=== PATIENT | male | born 1995 | race Two or more races ===

== ENCOUNTER 2025-04-07 20:51 | Emergency (ER) | payer MEDICAID, SELFPAY ==
[2025-04-07 20:53] VITALS: BMI 51.3
[2025-04-07 21:00] VITALS: BP 158/77; PULSE 76; RESP 19; TEMP 36.9; O2SAT 96
--- NOTE | 2025-04-07 21:07 | PD.EDDENTL ---
ED Dental RME/HPI General Chief complaint: Dental/Oral/Throat Stated complaint: tooth pain Time Seen by Provider: 04/07/25 20:57 Arrival date/time: 04/07/25 20:51 29-year-old male presents to the ED with complaint of right lower wisdom tooth pain, #32 as well as #30 dental pain. He attempted to call his dentist yesterday but they were closed. He was unable to get any rest today, as he works [employer]. Limitations: no limitations RME / HPI Teeth map:  1. Obvious caries noted with no gumline abscess 2. No obvious caries noted, with no gumline abscess, positive percussive tenderness. Related Data Previous Rx's ?Medication ?Instructions ?Recorded ibuprofen 800 mg tablet 800 mg PO Q8H PRN pain #30 tabs 06/25/22 benzonatate 200 mg capsule 200 mg PO TID PRN cough #20 caps 11/10/23 ibuprofen 600 mg tablet 600 mg PO TID PRN pain #30 tabs 11/10/23 ibuprofen 800 mg tablet 800 mg PO TID PRN pain #30 tabs 12/08/23 cephalexin 500 mg capsule 500 mg PO BID #10 caps 01/24/24 amoxicillin 875 mg tablet 875 mg PO BID Dental abscess #20 04/07/25 tabs ibuprofen 800 mg tablet 800 mg PO Q8H PRN pain #30 tabs 04/07/25 Allergies Allergy/AdvReac Type Severity Reaction Status Date / Time No Known Allergies Allergy Verified 01/24/24 04:17 Review of Systems Review of Systems Systems Reviewed: All systems reviewed, normal except as documented Past Medical History Past Medical History CARDIAC: Negative Congestive Heart Failure RESPIRATORY: Negative Chronic Obstructive Pulmonary Disease (COPD) GENITOURINARY: Negative Renal Disease ENDOCRINE: Negative Diabetes Mellitus Type 1 or Diabetes Mellitus Type 2 Social History SMOKING STATUS: Never smoker SUBSTANCE USE: marijuana (states he quit long time ago. ) ED Exam Narrative Physical exam: 29-year-old male, mild acute pain distress secondary to dental pain. He is afebrile, nontoxic-appearing. Lungs are clear, regular rate and rhythm without murmurs. No adenopathy. Caries noted to tooth #32 and percussive tenderness noted to tooth #30 on the right lower mandible. General Limitations: Present no limitations Course Course Course Narrative: Patient was given ibuprofen 800 mg p.o. as well as Augmentin 875 mg p.o. Quality Measures none Orders Category Date Time Status Amoxicillin/Pot Clav 875 [Augmentin 875] Med 04/07/25 21:12 Discontinued 1 tab PO X1 ONE Ibuprofen Tab [Motrin Tab] Med 04/07/25 21:12 Discontinued 800 mg PO X1 ONE Vital Signs Vital signs: Vital Signs Temperature 98.5 F 04/07/25 21:00 Pulse Rate 76 04/07/25 21:00 Respiratory Rate 19 04/07/25 21:00 Blood Pressure 158/77 H 04/07/25 21:00 Pulse Oximetry (%) 96 04/07/25 21:00 Oxygen Delivery Method Room Air 04/07/25 21:00 Dental / Oral MDM Narrative MDM Narrative:: 29-year-old male presents to the ED with complaint of right lower wisdom tooth pain, #32 as well as #30 dental pain. He attempted to call his dentist yesterday but they were closed. He was unable to get any rest today, as he works [employer]. 29-year-old male, mild acute pain distress secondary to dental pain. He is afebrile, nontoxic-appearing. Lungs are clear, regular rate and rhythm without murmurs. No adenopathy. Caries noted to tooth #32 and percussive tenderness noted to tooth #30 on the right lower mandible. Patient was given ibuprofen 800 mg p.o. as well as Augmentin 875 mg p.o. Patient data External records reviewed:: None Clinical information provided by:: patient Social determinants that could affect healthcare access:: none Patient has the following chronic illnesses:: N/A How is presenting disease/condition affected by chronic disease/condition?: no chronic disease Evaluation data The following diagnostics were reviewed and interpreted by me:: other (specify) (N/A) Lab and/or radiology exams considered but not ordered:: N/A Interpretation Summary: N/A Medications / Prescriptions Medications or Prescriptions considered but not ordered:: N/A Medication administrations:: Medication Administration History Discontinued Medications Amoxicillin/Clavulanate Potassium (Amoxicillin/Pot Clav 875 Tablet) 1 tab PO X1 ONE Stop: 04/07/25 21:13 Last Admin: 04/07/25 21:28 Dose: 1 tab Documented By: HUY Ibuprofen (Ibuprofen Tab 400 Mg Tablet) 800 mg PO X1 ONE Stop: 04/07/25 21:13 Last Admin: 04/07/25 21:28 Dose: 800 mg Documented By: KF As noted above Consultations Consultation(s) initiated? (list below): No Diagnosis Dental Differential Diagnosis: dental caries, toothache, dental abscess and fracture of tooth Most likely diagnosis given after review of the tests above:: Dental abscess Admission Indicated Admission indicated?: not indicated Explain why admission is indicated or not indicated:: Patient stable for discharge Admission Request Was there a request for admission?: No Disposition Plan Disposition Plan: Discharge Discharge Attestation Discharge Attestation: The patient and all family members were given an opportunity to ask questions and understood the discharge instructions. Discharge instructions specifically effects, indications for sooner follow up or return to the emergency department, and the expected course of current diagnosis. Patient condition: Stable Discharge Plan Plan Patient Disposition: HOME (Self Care) Discharge Disposition comment: Stable Prescriptions/Referrals Prescriptions/Med Rec: New amoxicillin 875 mg tablet 875 mg PO BID Qty: 20 0RF ibuprofen 800 mg tablet 800 mg PO Q8H PRN (Reason: pain) Qty: 30 0RF No Action ibuprofen 800 mg tablet 800 mg PO Q8H PRN (Reason: pain) Qty: 30 0RF benzonatate 200 mg capsule 200 mg PO TID PRN (Reason: cough) Qty: 20 0RF ibuprofen 600 mg tablet 600 mg PO TID PRN (Reason: pain) Qty: 30 0RF ibuprofen 800 mg tablet 800 mg PO TID PRN (Reason: pain) Qty: 30 0RF cephalexin 500 mg capsule 500 mg PO BID Qty: 10 0RF Problem List Clinical Impression: Dental abscess Patient/Caregiver Discharge Instructions Education Materials: ED Abscess Antibiotic ... Additional Instructions: Contact your dentist first thing in the morning to schedule an appointment for evaluation. Take the antibiotics as prescribed and complete the course even though you may be feeling better. Follow-up with your primary care physician in 24 to 48 hours. Return to the ED for any new or worsening symptoms. Print Language: Czech Stand Alone Forms: Sarah Award Info., Work/School Release, Patient Portal Info Letter DEON/JUAN DANIEL Supervising Physician DEON/JUAN DANIEL Supervising Physician: Dr Olivares
[2025-04-07] MEDS: IBUPROFEN TAB 400 MG TABLET 800 MG PO (21:28)
[2025-04-07] MEDS: AMOXICILLIN/POT CLAV 875 TABLET 1 TAB PO (21:28)
== END 2025-04-07 21:36 | disposition home or self-care (01) ==
LOC: SERX 21:14
PROVIDERS: Emergency Provider Emergency Medicine
DX: K04.7 Periapical abscess without sinus (principal)
CPT/HCPCS: 99282; A9270

== ENCOUNTER 2025-09-10 02:20 | Emergency (ER) | payer MEDICAID, SELFPAY ==
[2025-09-10 02:47] VITALS: BMI 48.7
[2025-09-10 02:48] VITALS: BP 142/73; PULSE 85; RESP 19; TEMP 37.2; O2SAT 96
--- NOTE | 2025-09-10 03:12 | PD.EDCHEST ---
ED Chest Pain RME/HPI General Chief Complaint: Chest Pain Stated Complaint: CHEST PAIN Time Seen by Provider: 09/10/25 03:05 Arrival date/time: 09/10/25 02:20 RME / HPI RME / HPI narrative: DR. SCHWARZ MAIN ED EVALUATION: Morbidly obese patient presents with lassitude malaise since earlier this morning followed by chills and scantly productive cough. Patient subsequently developed pleuritic chest pain localized to the right anterior chest. Notes nasal congestion, although denies sore throat, vomiting, diarrhea, or general body aches. PMH: Obesity, no known history of heart disease, DM, or asthma PSH: Orthopedic knee procedure, Appendectomy Allergies: None reported Social: Tobacco use, occasional alcohol use, no illicit drug abuse Related Data Previous Rx's ?Medication ?Instructions ?Recorded ibuprofen 800 mg tablet 800 mg PO Q8H PRN pain #30 tabs 06/25/22 benzonatate 200 mg capsule 200 mg PO TID PRN cough #20 caps 11/10/23 ibuprofen 600 mg tablet 600 mg PO TID PRN pain #30 tabs 11/10/23 ibuprofen 800 mg tablet 800 mg PO TID PRN pain #30 tabs 12/08/23 cephalexin 500 mg capsule 500 mg PO BID #10 caps 01/24/24 amoxicillin 875 mg tablet 875 mg PO BID Dental abscess #20 04/07/25 tabs ibuprofen 800 mg tablet 800 mg PO Q8H PRN pain #30 tabs 04/07/25 albuterol sulfate 90 mcg/actuation 2 puff inhalation Q6H PRN 09/10/25 aerosol inhaler (Ventolin HFA) shortness of breath or wheezing #8.5 grams amoxicillin 500 mg-potassium 1 tab PO TID 10 days #30 tabs 09/10/25 clavulanate 125 mg tablet (Augmentin) azithromycin 250 mg tablet See Rx Instructions PO .COMPLEX #6 09/10/25 (Zithromax Z-Arpan) tabs dextromethorphan-guaifenesin 5 10 ml PO Q4H PRN cough #500 mL 09/10/25 mg-100 mg/5 mL oral liquid (Robitussin Cough-Chest Congestion DM) Allergies Allergy/AdvReac Type Severity Reaction Status Date / Time No Known Allergies Allergy Verified 01/24/24 04:17 Review of Systems Review of Systems Systems Reviewed: All systems reviewed, normal except as documented Past Medical History Past Medical History GASTROINTESTINAL: Positive Obesity ED Exam Narrative Physical exam: GEN. APPEARANCE: The patient is alert awake oriented X-3 under no distress, lying down comfortably, does not look ill/toxic. Patient has good eye contact. Patient is cooperative. Notably obese VITALS: All vitals were reviewed and the pulse ox is 96%, which is normal according to my interpretation HEENT: Normocephalic, atraumatic and nontender. Pupils are equal and reactive. Oral mucosa is moist, oropharynx 2+, slight crowding, no exudates or tonsillar hypertrophy NECK: Supple, nontender, no meningismus, no JVD. There is no thyromegaly and no lymphadenopathy. No stridor. CHEST: Markedly tender to the right costochondral joints, no step-off deformity and no crepitus. Slight limited excursion due to pain. CARDIOVASCULAR: Heart regular rhythm, no murmur or gallop rub or extra beats. LUNGS: Clear to auscultation bilaterally with symmetrical chest rise. No laboring tachypnea or wheezing. No intercostal subcostal retraction. No rales and no rhonchi. ABDOMEN: Soft, obese, nontender to palpation, no guarding or rebound tenderness. There are no abnormal masses palpated. No pulsatile masses or bruits. Active and normal bowel sounds. EXTREMITIES:.Normal inspection and palpation. No edema. No cyanosis. Patient is able to move all 4 extremities well SKIN: Warm and dry, no rashes noted. MUSCULOSKELETAL: No lumbar or midline bony tenderness. There is no CVA tenderness. No paraspinal muscle spasm or tenderness. NEURO: Cranial nerves II through XII grossly intact. There are no focal neurologic deficits noted. GCS is 15 PSYCHIATRIC: Patient is in normal mood and affect, cooperative. LYMPHATICS: No major lymphadenopathy noted. Course Quality Measures none Orders Category Date Time Status Bedside COVID-19 Antigen Test NOW Care 09/10/25 03:20 Active EKG (ED ONLY) *Do not use* NOW Care 09/10/25 03:14 Active EKG (ED Only) Stat Exams 09/10/25 03:13 Ordered XR chest 2V Stat Exams 09/10/25 03:14 Taken B-Type Natriuretic Peptide Stat Lab 09/10/25 03:19 Completed CBC Stat Lab 09/10/25 03:19 Completed Comprehensive Metabolic Panel Stat Lab 09/10/25 03:19 Completed Drug Screen,Urine Stat Lab 09/10/25 04:01 Completed Influenza A & B Rapid Panel Stat Lab 09/10/25 03:21 Ordered Magnesium Stat Lab 09/10/25 03:19 Completed Troponin I Stat Lab 09/10/25 03:19 Completed Urinalysis, C/S if Indicated Stat Lab 09/10/25 04:01 Completed Azithromycin Inj [Zithromax Inj] 500 mg Med 09/10/25 05:16 Active Sodium Chloride 0.9% 250 ml [Ns] 250 ml IV X1 Ketorolac Inj [Toradol Inj] Med 09/10/25 03:19 Discontinued 30 mg IVP X1 ONE Sodium Chloride 0.9% 1000 ml [Ns] 1,000 ml Med 09/10/25 05:16 Active IV 999 mls/hr cefTRIAXone [Rocephin] 2 gm Med 09/10/25 05:15 Active SODIUM CHLORIDE 0.9% (Popper) [Ns 0.9% (P)] 50 ml IV X1 Vital Signs Vital signs: Vital Signs Temperature 99 F 09/10/25 02:48 Pulse Rate 85 09/10/25 02:48 Respiratory Rate 19 09/10/25 02:48 Blood Pressure 142/73 H 09/10/25 02:48 Pulse Oximetry (%) 96 09/10/25 02:48 Oxygen Delivery Method Room Air 09/10/25 02:48 Chest Pain MDM Narrative MDM Narrative:: Scribe Attestation: Ryann Amato am scribing for and in the presence of Dr. Schwarz. Provider Notation: Although this document has been carefully reviewed, there may still be some phonetic and other typographical errors. These errors are purely grammatical due to imperfections in the software program and should not be construed in any way to compromise the substance of the patient's medical care during this visit. Morbidly obese patient presents with lassitude malaise since earlier this morning followed by chills and scantly productive cough. Patient subsequently developed pleuritic chest pain localized to the right anterior chest. Please see PE findings. Laboratory markers, including CBC and serum chemistries, demonstrated a marginally elevated WBC of 13.5, hemoglobin of 15.5, with no thrombocytopenia evident. Serum chemistries demonstrated elevated blood sugar of 114 with no signs of ketosis. Patient placed on school bus monitor, hydrated with normal saline, and underwent routine chest x-ray demonstrating right basal infiltrate. IV established, administered IV NSAIDS, dual-ABX, and remained hemodynamically stable without signs of respiratory insufficiency. Considered stable for discharge. Patient will be discharged with Augmentin/Doxycyline, prescribed inhaler and mucolytic (Robitussin DM). Patient will be discharged to home. Final diagnosis is pneumonia. Patient data External records reviewed:: [facility] previous records (Reviewed prior ED records from 04/07/25. Patient was seen for Dental abscess.) and EMS form Clinical information provided by:: patient and EMS Social determinants that could affect healthcare access:: alcohol use Patient has the following chronic illnesses:: Obesity How is presenting disease/condition affected by chronic disease/condition?: exacerbated by Evaluation data The following diagnostics were reviewed and interpreted by me:: lab results, radiology exam(s) and EKG tracing(s) (EKG demonstrates sinus rhythm with ventricular rate of 89 bpm, no acute ST segment changes, no ventricular ectopy, axis is leftward, evidence right BBB, per my interpretation.) Lab and/or radiology exams considered but not ordered:: None Interpretation Summary: RADIOLOGY Chest X-Ray: Pending official radiology report. Medications / Prescriptions Medications or Prescriptions considered but not ordered:: None Medication administrations:: Medication Administration History Ceftriaxone Sodium 2 gm/ (Sodium Chloride) 50 mls @ 100 mls/hr IV X1 ONE Stop: 09/10/25 05:44 Azithromycin 500 mg/ Sodium (Chloride) 250 mls @ 250 mls/hr IV X1 ONE Stop: 09/10/25 06:15 Sodium Chloride (Ns) 1,000 mls @ 999 mls/hr IV .Q1H1M ONE Stop: 09/10/25 06:16 Discontinued Medications Ketorolac Tromethamine (Ketorolac Inj 30 Mg/Ml Vial) 30 mg IVP X1 ONE Stop: 09/10/25 03:20 Last Admin: 09/10/25 04:37 Dose: 30 mg Documented By: ALVINA See above if any Consultations Consultation(s) initiated? (list below): No Diagnosis Chest Pain Differential Diagnosis: fracture of rib, pneumothorax, stable angina, unstable angina pectoris, atypical chest pain, st elevation myocardial infarction, costochondritis, chest pain, biliary colic and other (URI, COVID, Influenza A vs B) Most likely diagnosis given after review of the tests above:: RLL PNA Admission Indicated Admission indicated?: not indicated Explain why admission is indicated or not indicated:: Patient does not meet admission criteria Admission Request Was there a request for admission?: No Disposition Plan Disposition Plan: Discharge Discharge Attestation Discharge Attestation: The patient and all family members were given an opportunity to ask questions and understood the discharge instructions. Discharge instructions specifically effects, indications for sooner follow up or return to the emergency department, and the expected course of current diagnosis. Patient condition: Stable Discharge Plan Plan Patient Disposition: HOME (Self Care) Discharge Disposition comment: Stable Prescriptions/Referrals Prescriptions/Med Rec: New amoxicillin-pot clavulanate [Augmentin] 500-125 mg tablet 1 tab PO TID 10 Days Qty: 30 0RF albuterol sulfate [Ventolin HFA] 90 mcg/actuation HFA aerosol inhaler 2 puff inhalation Q6H PRN (Reason: shortness of breath or wheezing) Qty: 8.5 0RF azithromycin [Zithromax Z-Arpan] 250 mg tablet See Rx Instructions .ROUTE .COMPLEX Qty: 6 0RF Rx Instructions: For 250 mg dose pack: take 500 mg today (day 1), then 250 mg for 4 days (days 2-5) dextromethorphan-guaifenesin [Robitussin Cough-Chest Isael DM] 5-100 mg/5 mL liquid 10 ml PO Q4H PRN (Reason: cough) Qty: 500 0RF No Action ibuprofen 800 mg tablet 800 mg PO Q8H PRN (Reason: pain) Qty: 30 0RF amoxicillin 875 mg tablet 875 mg PO BID Qty: 20 0RF ibuprofen 800 mg tablet 800 mg PO Q8H PRN (Reason: pain) Qty: 30 0RF benzonatate 200 mg capsule 200 mg PO TID PRN (Reason: cough) Qty: 20 0RF ibuprofen 600 mg tablet 600 mg PO TID PRN (Reason: pain) Qty: 30 0RF ibuprofen 800 mg tablet 800 mg PO TID PRN (Reason: pain) Qty: 30 0RF cephalexin 500 mg capsule 500 mg PO BID Qty: 10 0RF Referrals: Tutu Peralta MD [Primary Care Provider, [facility]] - In 1 week Problem List Clinical Impression: Right lower lobe pneumonia Impression comment: Right lower lobe pneumonia Patient/Caregiver Discharge Instructions Discharge Activity: activity as tolerated Diet Instructions: Force fluids Education Materials: ED Pneumonia (Adult) Additional Instructions: Force fluids/medication as directed/follow-up with primary care doctor in 5 to 7 days return if worsening. Print Language: Irish Stand Alone Forms: Sarah Award Info., Patient Portal Info Letter
--- NOTE | 2025-09-10 03:14 | XR_ITS ---
EXAMINATION: PA lateral chest 2 views TECHNIQUE: Upright PA and lateral chest 2 views Date and time: September 10, 2025, 0320 hours INDICATIONS: Chest pain today. FINDINGS: Right lower lobe pneumonia obscuring detail medial portion right hemidiaphragm. Normal heart size Left lung clear IMPRESSION: Right lower lobe pneumonia
[2025-09-10 03:37] LABS: Basophils # (Auto) 0.1 Thou/mm3 (0.0-0.2); Basophils % (Auto) 0 % (0-2.5); Eosinophils # (Auto) 0.2 Thou/mm3 (0.0-0.5); Eosinophils % (Auto) 1 % (0-10); Hematocrit 46.0 % (41.0-53.0); Hemoglobin 15.5 g/dL (13.5-16.0); Immature Granulocytes Auto 0.04 Thou/mm3 (0.00-0.00); Lymphocytes # (Auto) 2.1 Thou/mm3 (1.0-4.8); Lymphocytes % (Auto) 15 % (10-50); Mean Corpuscular HGB Conc 33.7 g/dl (31.0-37.0); Mean Corpuscular Hemoglobin 30.1 pg (25.0-35.0); Mean Corpuscular Volume 89 fL (80-100); Monocytes # (Auto) 1.2 Thou/mm3 (0.0-0.8); Monocytes % (Auto) 9 % (0-12); Neutrophils # (Auto) 10.0 Thou/mm3 (1.8-7.7); Neutrophils % (Auto) 74 % (37-80); Nucleated Red Blood Cell # 0.00 Thou/mm3 (0.00-0.00); Nucleated Red Blood Cell % 0 /100 WBC (0); Platelet Count 202 Thou/mm3 (140-440); RDW Standard Deviation 42.8 fL (35.1-43.9); Red Blood Count 5.15 Miln/mm3 (4.50-5.90); White Blood Count 13.5 Thou/mm3 (3.8-10.6)
[2025-09-10 03:50] VITALS: BMI 48.7
[2025-09-10 03:55] LABS: B-Type Natriuretic Peptide < 20 pg/mL (0-100)
[2025-09-10 03:56] LABS: Alanine Aminotransferase 20 U/L (10-49); Albumin, Serum 4.4 gm/dL (3.5-5.0); Albumin/Globulin Ratio 1.2 (1.2-2.2); Alkaline Phosphatase 96 U/L (46-116); Anion Gap 9 (7-16); Aspartate Amino Transferase 20 U/L (0-34); BUN/Creatinine Ratio 9 Ratio (12-20); Bilirubin,Total 0.9 mg/dL (0.3-1.2); Blood Urea Nitrogen 6 mg/dL (9-23); Calcium 8.9 mg/dL (8.3-10.6); Calcium (Corrected) 8.9 mg/dL (8.5-10.1); Carbon Dioxide 25.1 mMol/L (20.0-31.0); Chloride 104 mMol/L (98-107); Creatinine (Component) 0.7 mg/dL (0.6-1.3); Estimated Creatinine Clearance 262.7 mL/min (>60); Globulin 3.6 gm/dL (2.3-3.5); Glucose 114 mg/dL (74-106); Magnesium 1.9 mg/dL (1.6-2.6); Osmolality,Calculated 274 (275-295); Potassium 4.0 mMol/L (3.4-5.1); Sodium 138 mMol/L (136-145); Total Protein 8.0 gm/dL (5.7-8.2); Troponin I < 0.020 ng/mL (0.0-0.045); eGFR > 60 See Note
[2025-09-10 04:09] LABS: Collection Type, Urine Clean Catch
[2025-09-10 04:17] LABS: Amorphous Crystals,Urine Present (Absent); Bilirubin,Urine Negative (Negative); Blood,Urine Negative (Negative); Clarity,Urine Clear (Clear/Hazy); Color,Urine Lt-Yellow (Lt Yel-Yel); Culture Indicated,Urine Not Indicated; Glucose, Urine Negative (Negative); Ketones,Urine Negative (Negative); Leukocyte Esterase,Urine Negative (Negative); Nitrite,Urine Negative (Negative); PH,Urine 7.0 (5.0-7.0); Protein,Urine Negative (Neg - Trace); RBC,Urine 5 /hpf (0-3); Specific Gravity,Urine 1.020 (1.001-1.035); Squamous Epithelial Cell,Urine 2 /hpf (0-5); Urobilinogen,Urine 3.0 mg/dL (0.0-1.0); WBC,Urine 1 /hpf (0-5)
[2025-09-10 04:28] LABS: Amphetamine/Methamp Scrn,U Negative (Negative); Barbiturate Screen,Urine Negative (Negative); Benzodiazepines Screen,Urine Negative (Negative); Benzoylecgonine Screen, Ur Negative (Negative); Fentanyl Screen,Urine Negative (Negative); Opiate Screen,Urine Negative (Negative); THC Screen,Urine Negative (Negative)
[2025-09-10 04:37] VITALS: TEMP 37.8
[2025-09-10] MEDS: KETOROLAC INJ 30 MG/ML VIAL IVP (04:37)
[2025-09-10] MEDS: SODIUM CHLORIDE 0.9% 1000 ML 1,000 ML 999 ML IV (05:14)
[2025-09-10 05:36] VITALS: BP 138/72; PULSE 82; RESP 16; TEMP 37.8; O2SAT 96
[2025-09-10] MEDS: AZITHROMYCIN INJ 500 MG in SODIUM CHLORIDE 0.9% 250 ML 250 ML 250 MG IV (05:41)
[2025-09-10] MEDS: cefTRIAXone 2 GM in SODIUM CHLORIDE 0.9% (Popper) 50 ML IV (05:41)
[2025-09-10 07:45] VITALS: BP 144/76; PULSE 82; RESP 18; TEMP 37.5; O2SAT 96
== END 2025-09-10 07:47 | disposition home or self-care (01) ==
PROVIDERS: Emergency Provider Emergency Medicine; PCP Family Medicine
DX: J18.9 Pneumonia, unspecified organism (principal); E11.9 Type 2 diabetes mellitus without complications; E66.01 Morbid (severe) obesity due to excess calories
CPT/HCPCS: 36415; 71046; 80053; 80307; 81001; 83735; 83880; 84484; 85025; 87502; 87811; 93005; 96365; 96375; 99283; J0456; J0696; J1885; J7030; J7050